=== PATIENT | female | born 1965 | race Caucasian/White ===

== ENCOUNTER 2024-12-17 09:26 | Emergency (ER) | payer BC, SELFPAY ==
[2024-12-17 09:34] VITALS: BP 172/98
--- NOTE | 2024-12-17 10:09 | ED.GENMED ---
History of Present Illness
<David Strong MD, Resident - Last Filed: 12/17/24 11:37>
General
Chief Complaint: Dizziness
Source: patient and family
Exam Limitations: none
Time Seen by Provider: 12/17/24 09:52
History of Present Illness
History of Present Illness:
This is a 59-year-old female who presented with complaints of dizziness which she felt in the gym during a weight class. Denies any similar episodes in the past. States that the episode lasted for few minutes. Denies any other symptoms including
fevers, chills, headache, visual changes, chest pain, trouble breathing, weakness, numbness or any other neurological symptoms. Denies any recent illness. Denies any other changes in the medications. She states that she only has a history of
hyperlipidemia and uses a statin but not daily. At the time of arrival in the emergency department she states that she is feeling fine but still wanted to get checked up.
Past History
<David Strong MD, Resident - Last Filed: 12/17/24 11:37>
Past History
ED Past Medical History: Hypercholesterolemia
ED Past Surgical History: None
Social History
Tobacco: Non-smoker
Alcohol: None
Drug: None
Personal:
Living: with family
Family History
Family History: Other (No history of CVA in the family)
Review of Systems
<David Strong MD, Resident - Last Filed: 12/17/24 11:37>
Review of Systems
Allergies reviewed?: Yes
Constitutional: Reports no symptoms
EENT: Reports no symptoms
Respiratory: Reports no symptoms
Cardiac: Reports no symptoms
ABD/GI: Reports no symptoms
: Reports no symptoms
Musculoskeletal: Reports no symptoms
Skin: Reports no symptoms
Neurological: Reports dizzy (Resolved)
Endocrine: Reports no symptoms
Hematologic/Lymphatic: Reports no symptoms
Psychiatric: Reports no symptoms
Phy Exam
<David Strong MD, Resident - Last Filed: 12/17/24 11:37>
General Physical Exam
General Presentation: well appearing and no apparent distress
General age: appears stated age
General Skin: warm
General Habitus: normal
General Mental: alert
Eye Exam
Eye Exam: PERRL and conjunctiva normal
Pupil Exam: Bilateral: round
Cardiovascular Exam
Cardiovascular Exam: regular rate/rhythm and no murmur
Pulmonary Exam
Pulmonary Exam: lungs clear, no respiratory distress, no rales, no crackles and no wheezing
Neurological Exam
Neurological Exam: alert, oriented x3, CN II-XII intact, no motor deficits and no sensory deficits
Musculoskeletal Exam
Musculoskeletal Exam: full ROM
Psychiatric Exam
Psychiatric Exam: normal mood/affect
Course
<David Strong MD, Resident - Last Filed: 12/17/24 11:37>
Orders/Labs/Results
Orders:
Orders
12/17/24 09:27
Electrocardiogram (*1) Urgent
Reason for Study: Vertigo / Dizzy
EKG- Treatment ONCE
12/17/24 10:36
Complete Blood Count/With Diff Urgent
Comprehensive Metabolic Panel Urgent
12/17/24 10:37
Urinalysis Reflex To Culture Urgent
Date Specimen was Collected: 12/17/24
Time Specimen was Collected: 10:35
Urine Microscopic Reflex Cult Urgent
Urine Culture Urgent
ISMA Source: U
Specimen Description:
Date Specimen was Collected: 12/17/24
Time Specimen was Collected: 10:35
Abnormal Lab Results
12/17/24 12/17/24
10:36 10:37
Glucose 108 H mg/dl
(70-99)
Ur Occult Blood Reflex 1+ A
(Negative)
Urine Nitrite (Reflex) Positive A
(Negative)
Leukocyte Esterase Rfl 1+ A
(Negative)
Urine Bacteria (Reflex) Many A
(Negative)
Urine Albumin (Reflex) 1+ A
(Neg - Trace)
12/17/24 10:36
12/17/24 10:36
Vital Signs
Initial and Last Documented VS:
Initial Vital Signs
Temp Pulse Resp BP Pulse Ox
97.9 F 99 16 172/98 100
12/17/24 09:34 12/17/24 09:34 12/17/24 09:34 12/17/24 09:34 12/17/24 09:34
Last Documented Vital Signs
Temp Pulse Resp BP Pulse Ox
97.9 F 99 16 172/98 100
12/17/24 09:34 12/17/24 09:34 12/17/24 09:34 12/17/24 09:34 12/17/24 10:14
<Patrice Foote, DO - Last Filed: 12/17/24 11:34>
Orders/Labs/Results
Orders:
Orders
12/17/24 09:27
Electrocardiogram (*1) Urgent
Reason for Study: Vertigo / Dizzy
EKG- Treatment ONCE
12/17/24 10:36
Complete Blood Count/With Diff Urgent
Comprehensive Metabolic Panel Urgent
12/17/24 10:37
Urinalysis Reflex To Culture Urgent
Date Specimen was Collected: 12/17/24
Time Specimen was Collected: 10:35
Urine Microscopic Reflex Cult Urgent
Urine Culture Urgent
ISMA Source: U
Specimen Description:
Date Specimen was Collected: 12/17/24
Time Specimen was Collected: 10:35
Abnormal Lab Results
12/17/24 12/17/24
10:36 10:37
Glucose 108 H mg/dl
(70-99)
Ur Occult Blood Reflex 1+ A
(Negative)
Urine Nitrite (Reflex) Positive A
(Negative)
Leukocyte Esterase Rfl 1+ A
(Negative)
Urine Bacteria (Reflex) Many A
(Negative)
Urine Albumin (Reflex) 1+ A
(Neg - Trace)
12/17/24 10:36
12/17/24 10:36
Vital Signs
Initial and Last Documented VS:
Initial Vital Signs
Temp Pulse Resp BP Pulse Ox
97.9 F 99 16 172/98 100
12/17/24 09:34 12/17/24 09:34 12/17/24 09:34 12/17/24 09:34 12/17/24 09:34
Last Documented Vital Signs
Temp Pulse Resp BP Pulse Ox
97.9 F 99 16 172/98 100
12/17/24 09:34 12/17/24 09:34 12/17/24 09:34 12/17/24 09:34 12/17/24 10:14
<David Strong MD, Resident - Last Filed: 12/17/24 11:37>
MDM/Problems Addressed
Differential Diagnosis Includes:
Iatrogenic VS less likely vascular VS unlikely infectious or neoplastic
MDM/Problems Addressed:
Will get EKG, CBC, CMP, UA.
update: CBC and CMP unremarkable, UA is with 1+ blood patient reports no urinary symptoms or concerns.
Based on the history and unremarkable physical exam with no red flags. Patient agreed to follow-up with PCP outpatient and look out for return of symptoms or worsening. Patient agreed with the plan. Patient stable for discharge.
<David Strong MD, Resident - Last Filed: 12/17/24 11:37>
*Pulse Oximetry
SaO2: 100
Oxygen Mode of Delivery: Room air
Patient hypoxic: no
*Critical Care Note
Total Time (30-74mins, 75-104mins- exclusive of procedures): Not Applicable
<Patrice Foote DO - Last Filed: 12/17/24 11:34>
*EKG
Interpreted by ED Provider?: Yes
Interpretation: abnormal
Comparison EKG: no comparison EKG present
Heart Rate: 78
Rate: normal
Rhythm: sinus
Ischemia: non-specific ST changes
*[facility] Interpretation
Rate: normal
Interpretation: normal
Heart Rate: 78
Rhythm: sinus
ED Attending Note
<David Strong MD, Resident - Last Filed: 12/17/24 11:37>
-
Portions of this chart may have been created with voice recognition software.� Occasional wrong word or��sound alike� substitutions may have occurred due to the inherent limitations of voice recognition software.
<Patrice Foote, - Last Filed: 12/17/24 11:34>
ED Attending Note
Patient seen and examined by attending physician: Yes
I performed a history and physical exam of patient and discussed management with resident, I reviewed resident's note and agree with documented findings and plan of care.: Yes
ED Attending Note:
Seen with resident examined independently 59-year-old female hyperlipidemia, dizzy spell after working out, no chest pain or shortness of breath, tracing Gatorade is feeling better here labs are noted EKG noted monitor here with no significant
arrhythmia, she is nonfocal neurologic exam no nystagmus,
Discharge Plan
Departure
Patient Disposition: Home (Routine Discharge)
Date of Disposition: 12/17/24
Time of Disposition: 11:32
Patient with high blood pressure during this ER visit?: Yes
Condition: Good
Discharge Problem:
Dizziness
Instructions: Dizziness, BLOOD PRESSURE
Referrals:
Marily Warren CRNP [Family Provider, [facility]] - Follow up in 1 week
Activity Restrictions/Additional Instructions:
You were seen in the Emergency Department today for your dizziness. while you were here we performed a blood work which was mostly benign and unremarkable.
We would like for you to follow up with your primary care physician for further evaluation. If you experience fever, worsening of your symptoms, or develop any other new or concerning symptoms, please return to the Emergency Department immediately.
Also if you develop any weakness, numbness, trouble speaking or swallowing please immediately come to the emergency department.
Please see the attached sheet for additional information.
Interventions
Interventions:
*Risk Screen - Suicide Last Done: 12/17/24 09:35
*Neglect/Abuse Screening Last Done: 12/17/24 09:35
Discharge Date and Time
Print Language: NIUEAN
[2024-12-17 10:46] LABS: Hematocrit 41.7 % (37.0-47.0); Hemoglobin 14.2 g/dL (12.0-16.0); Mean Corp Hgb Conc. 34.1 g/dL (33.0-37.0); Mean Corpuscular Volume 90.8 fL (81.0-99.0); Nucleated Red Blood Cells % 0 %; Platelet Count 238 10^3/uL (130-400); Red Cell Dist. Width 12.3 % (11.5-14.5)
[2024-12-17 10:48] LABS: Urine Character Clear (Clear)
[2024-12-17 11:12] LABS: ALT (SGPT) 25 U/L (0-35); AST (SGOT) 24 U/L (14-36); Albumin 4.6 g/dl (3.5-5.0); Alkaline Phosphatase 75 U/L (38-126); Blood Urea Nitrogen 14 mg/dl (7-17); Calcium 9.8 mg/dl (8.4-10.2); Carbon Dioxide 26 mmol/L (22-30); Chloride 107 mmol/L (98-107); Glucose 108 mg/dl (70-99); Potassium 4.1 mmol/L (3.5-5.1); Sodium 138 mmol/L (135-145); Total Protein 7.0 g/dl (6.3-8.2); eGFR > 60.00
[2024-12-17 11:26] LABS: Urine Squamous Cell 26-30 /LPF (Few)
[2024-12-17 11:28] LABS: Urine Red Blood Cell 0-2 /HPF (0-2); Urine White Cell 0-2 /HPF (0-5)
== END 2024-12-17 13:13 | disposition home or self-care (01) ==
LOC: EMR 09:26
PROVIDERS: EMERGENCY PHYSICIAN Emergency Medicine; FAMILY PHYSICIAN Nurse Practitioner Family
DX: R42 Dizziness and giddiness (principal); R03.0 Elevated blood-pressure reading, without diagnosis of hypertension; E78.00 Pure hypercholesterolemia, unspecified
CPT/HCPCS: 99283; 80053; 81003; 81015; 85025; 87086; 87088; 87186; 93005